=== PATIENT | male | born 1945 | race Caucasian/White ===

== ENCOUNTER 2020-09-26 21:40 | Emergency (ER) | payer MEDICARE, OTHER ==
[2020-09-26 23:01] LABS: BASOPHIL 0.5 % (0-2); EOSINOPHIL 1.9 % (0-7); HCT 48.4 % (42.0-52.0); HGB 15.8 g/dl (13.2-18.0); LYMPHOCYTE 11.5 % (15-48); MCH 30.8 pg (25.0-31.0); MCHC 32.6 g/dL (32.0-36.0); MCV 94.3 fL (78.0-100.0); MONOCYTE 9.8 % (0-12); MPV 8.7 fL (6.0-9.5); NRBC 0; PLT 255 K/uL (150-400); RBC 5.13 M/uL (4.70-6.00); RDW 13.3 % (11.5-14.0); WBC 12.7 K/uL (4.0-10.5)
[2020-09-26 23:02] LABS: BILIRUBIN NEGATIVE (NEGATIVE); BLOOD 3+ Ery/uL (NEGATIVE); CLARITY CLEAR (CLEAR); COLOR YELLOW (YELLOW); GLUCOSE (U) NORMAL (NORMAL); LEUKOCYTES NEGATIVE Leu/uL (NEGATIVE); NITRITE NEGATIVE (NEGATIVE); PROTEIN NEGATIVE (NEGATIVE); UROBILINOGEN 0.2 mg/dL (0.2-1.0)
[2020-09-26 23:09] LABS: NEUTROPHIL 75.7 % (41-80)
[2020-09-26 23:12] LABS: BACTERIA TRACE
[2020-09-26 23:18] LABS: ALBUMIN 3.8 g/dL (3.4-5.0); BILIRUBIN - TOTAL 0.6 mg/dL (0.2-1.0); BUN/CREAT RATIO (CALC) 23.3 RATIO; CREATININE 0.9 mg/dL (0.67-1.17); GLOBULIN (CALCULATION) 4.4 g/dL; TOTAL PROTEIN 8.2 g/dL (6.4-8.2)
== END 2020-09-27 00:27 | disposition home or self-care (01) ==
LOC: FER 21:40
PROVIDERS: Emergency Medicine Emergency Medical Services
DX: N13.2 Hydronephrosis with renal and ureteral calculous obstruction (principal); K21.9 Gastro-esophageal reflux disease without esophagitis; E78.5 Hyperlipidemia, unspecified; I10 Essential (primary) hypertension
CPT/HCPCS: 36415; 80053; 81001; 83690; 85025